=== PATIENT | male | born 1970 | race Caucasian/White ===

== ENCOUNTER 2020-08-01 08:37 | Outpatient (REF) | payer OTHER, SELFPAY ==
[2020-08-01 08:51] LABS: MANUAL DIFF FLAG NO
[2020-08-01 08:52] LABS: Basophils Percent Auto 0.4 % (0-2); Eosinophils Absolute Auto 0.1 X10*3/uL (0.0-0.4); Eosinophils Percent Auto 1.7 % (0-4); Hematocrit 44.8 % (42-52); Hemoglobin 15.4 g/dl (14.0-18.0); Imm Gran Abs Auto 0.02 X10*3/uL (0.00-0.03); Imm Gran Pct Auto 0.3 % (0.0-0.4); Lymphocytes Absolute Auto 2.8 X10*3/uL (1.2-4.9); Lymphocytes Percent Auto 37.6 % (20-40); Mean Corpuscular HGB Conc 34.4 g/dl (31.0-36.0); Mean Corpuscular Hemoglobin 30.3 pg (27.0-33.0); Mean Platelet Volume 10.6 fL (9.4-12.4); Monocytes Absolute Auto 0.5 X10*3/uL (0.1-1.2); Platelet Count 162 X10*3/uL (160-400); Red Blood Count 5.09 X10*6/uL (4.60-5.80); Red Cell Distribution Width 11.6 % (11.0-16.0); White Blood Count 7.5 X10*3/uL (4.8-10.8)
[2020-08-01 09:25] LABS: Alanine Aminotransferase 68 U/L (0-40); Albumin Level 4.6 g/dL (3.5-5.0); Alkaline Phosphatase 58 U/L (39-117); Aspartate Amino Transferase 41 U/L (5-37); Bilirubin Direct 0.2 mg/dL (0.0-0.5); Bilirubin Total 0.5 mg/dL (0.0-1.0); Total Protein 7.2 g/dL (6.5-8.0)
[2020-08-01 09:45] LABS: Ferritin 233 ng/mL (20-250)
== END 2020-08-01 08:38 | disposition home or self-care (01) ==
LOC: HO.BBR 08:37
PROVIDERS: Visit Provider Internal Medicine Endocrinology, Diabetes & Metabolism
DX: E83.110 Hereditary hemochromatosis (principal)
CPT/HCPCS: 36415; 80076; 82728; 85025; 99195

== ENCOUNTER 2024-03-28 08:13 | Outpatient (REF) | payer OTHER, SELFPAY | END 2024-03-28 08:14 | disposition home or self-care (01) | LOC: HO.BBR 08:13 | PROVIDERS: PCP Internal Medicine Endocrinology, Diabetes & Metabolism; Visit Provider Internal Medicine Endocrinology, Diabetes & Metabolism | DX: Z13.89 Encounter for screening for other disorder (principal) ==

== ENCOUNTER 2024-05-01 09:44 | Outpatient (REF) | payer OTHER, SELFPAY | END 2024-05-01 09:45 | disposition home or self-care (01) | LOC: HO.BBR 09:44 | PROVIDERS: PCP Internal Medicine Endocrinology, Diabetes & Metabolism; Visit Provider Internal Medicine Endocrinology, Diabetes & Metabolism | DX: Z13.89 Encounter for screening for other disorder (principal) ==

== ENCOUNTER 2024-05-22 08:06 | Outpatient (REF) | payer OTHER, SELFPAY | END 2024-05-22 08:07 | disposition home or self-care (01) | LOC: HO.BBR 08:06 | PROVIDERS: PCP Internal Medicine Endocrinology, Diabetes & Metabolism; Visit Provider Internal Medicine Endocrinology, Diabetes & Metabolism | DX: Z13.89 Encounter for screening for other disorder (principal) ==

== ENCOUNTER 2024-06-20 12:02 | Outpatient (REF) | payer OTHER, SELFPAY | END 2024-06-20 12:03 | disposition home or self-care (01) | LOC: HO.BBR 12:02 | PROVIDERS: PCP Internal Medicine Endocrinology, Diabetes & Metabolism; Visit Provider Internal Medicine Endocrinology, Diabetes & Metabolism | DX: Z13.89 Encounter for screening for other disorder (principal) ==

== ENCOUNTER 2024-08-08 09:04 | Outpatient (REF) | payer OTHER, SELFPAY ==
[2024-08-08 09:31] LABS: MANUAL DIFF FLAG NO
[2024-08-08 09:54] LABS: Basophils Absolute Auto 0.1 X10*3/uL (0.0-0.2); Basophils Percent Auto 0.8 % (0-2); Eosinophils Absolute Auto 0.2 X10*3/uL (0.0-0.4); Eosinophils Percent Auto 2.3 % (0-4); Hematocrit 43.8 % (42.0-52.0); Hemoglobin 14.8 g/dl (14.0-18.0); Imm Gran Abs Auto 0.02 X10*3/uL (0.00-0.03); Imm Gran Pct Auto 0.3 % (0.0-0.4); Lymphocytes Absolute Auto 2.9 X10*3/uL (1.2-4.9); Lymphocytes Percent Auto 39.6 % (20-40); Mean Corpuscular HGB Conc 33.8 g/dl (31.0-36.0); Mean Corpuscular Hemoglobin 29.1 pg (27.0-33.0); Mean Corpuscular Volume 86.1 fL (80.0-98.0); Monocytes Absolute Auto 0.4 X10*3/uL (0.1-1.2); Neutrophils Absolute Auto 3.8 x10*3/uL (2.0-8.3); Platelet Count 163 X10*3/uL (160-400); Red Blood Count 5.09 X10*6/uL (4.60-5.80); Red Cell Distribution Width 11.9 % (11.0-16.0); White Blood Count 7.4 X10*3/uL (4.8-10.8)
[2024-08-08 10:24] LABS: Alanine Aminotransferase 30 U/L (0-40); Albumin Level 4.4 g/dL (3.5-5.0); Alkaline Phosphatase 56 U/L (39-117); Aspartate Amino Transferase 19 U/L (5-37); Bilirubin Direct 0.2 mg/dL (0.0-0.5); Bilirubin Total 0.5 mg/dL (0.0-1.0); Total Protein 7.1 g/dL (6.5-8.0)
[2024-08-08 10:41] LABS: Ferritin 319 ng/mL (20-250)
== END 2024-08-08 09:05 | disposition home or self-care (01) ==
LOC: HO.BBR 09:04
PROVIDERS: PCP Internal Medicine Endocrinology, Diabetes & Metabolism; Visit Provider Internal Medicine Endocrinology, Diabetes & Metabolism
DX: E83.110 Hereditary hemochromatosis (principal)
CPT/HCPCS: 36415; 80076; 82728; 85025

== ENCOUNTER 2024-09-03 08:07 | Outpatient (REF) | payer OTHER, SELFPAY ==
[2024-09-03 08:49] LABS: MANUAL DIFF FLAG NO
[2024-09-03 08:54] LABS: Basophils Absolute Auto 0.1 X10*3/uL (0.0-0.2); Basophils Percent Auto 0.8 % (0-2); Eosinophils Absolute Auto 0.1 X10*3/uL (0.0-0.4); Eosinophils Percent Auto 2.2 % (0-4); Hematocrit 43.2 % (42.0-52.0); Imm Gran Abs Auto 0.01 X10*3/uL (0.00-0.03); Imm Gran Pct Auto 0.2 % (0.0-0.4); Lymphocytes Absolute Auto 2.8 X10*3/uL (1.2-4.9); Mean Corpuscular HGB Conc 34.7 g/dl (31.0-36.0); Mean Corpuscular Hemoglobin 29.7 pg (27.0-33.0); Mean Corpuscular Volume 85.5 fL (80.0-98.0); Mean Platelet Volume 11.4 fL (9.4-12.4); Monocytes Absolute Auto 0.5 X10*3/uL (0.1-1.2); Monocytes Percent Auto 8.5 % (2-11); Neutrophils Absolute Auto 2.7 x10*3/uL (2.0-8.3); Neutrophils Percent Auto 43.3 % (45-73); Platelet Count 146 X10*3/uL (160-400); Red Blood Count 5.05 X10*6/uL (4.60-5.80); White Blood Count 6.3 X10*3/uL (4.8-10.8)
[2024-09-03 09:26] LABS: Alanine Aminotransferase 35 U/L (0-40); Albumin Level 4.5 g/dL (3.5-5.0); Alkaline Phosphatase 45 U/L (39-117); Aspartate Amino Transferase 21 U/L (5-37); Bilirubin Direct 0.2 mg/dL (0.0-0.5); Bilirubin Total 0.6 mg/dL (0.0-1.0); Total Protein 7.2 g/dL (6.5-8.0)
[2024-09-03 09:40] LABS: Ferritin 229 ng/mL (20-250)
== END 2024-09-03 08:08 | disposition home or self-care (01) ==
LOC: HO.BBR 08:07
PROVIDERS: PCP Internal Medicine Endocrinology, Diabetes & Metabolism; Visit Provider Internal Medicine Endocrinology, Diabetes & Metabolism
DX: E83.110 Hereditary hemochromatosis (principal)
CPT/HCPCS: 36415; 80076; 82728; 85025

== ENCOUNTER 2024-09-24 08:02 | Outpatient (REF) | payer OTHER, SELFPAY ==
[2024-09-24 08:41] LABS: MANUAL DIFF FLAG NO
[2024-09-24 08:52] LABS: Basophils Absolute Auto 0.1 X10*3/uL (0.0-0.2); Eosinophils Absolute Auto 0.1 X10*3/uL (0.0-0.4); Hematocrit 42.1 % (42.0-52.0); Hemoglobin 14.5 g/dl (14.0-18.0); Imm Gran Abs Auto 0.01 X10*3/uL (0.00-0.03); Imm Gran Pct Auto 0.2 % (0.0-0.4); Lymphocytes Absolute Auto 2.5 X10*3/uL (1.2-4.9); Lymphocytes Percent Auto 41.6 % (20-40); Mean Corpuscular HGB Conc 34.4 g/dl (31.0-36.0); Mean Corpuscular Hemoglobin 29.7 pg (27.0-33.0); Mean Corpuscular Volume 86.1 fL (80.0-98.0); Monocytes Absolute Auto 0.5 X10*3/uL (0.1-1.2); Monocytes Percent Auto 7.5 % (2-11); Neutrophils Absolute Auto 2.9 x10*3/uL (2.0-8.3); Neutrophils Percent Auto 47.7 % (45-73); Platelet Count 162 X10*3/uL (160-400); Red Blood Count 4.89 X10*6/uL (4.60-5.80)
[2024-09-24 09:28] LABS: Alanine Aminotransferase 29 U/L (0-40); Albumin Level 4.5 g/dL (3.5-5.0); Alkaline Phosphatase 51 U/L (39-117); Aspartate Amino Transferase 31 U/L (5-37); Bilirubin Direct 0.2 mg/dL (0.0-0.5); Bilirubin Total 0.5 mg/dL (0.0-1.0); Total Protein 6.9 g/dL (6.5-8.0)
[2024-09-24 09:46] LABS: Ferritin 198 ng/mL (20-250)
== END 2024-09-24 08:03 | disposition home or self-care (01) ==
LOC: HO.BBR 08:02
PROVIDERS: PCP Internal Medicine Endocrinology, Diabetes & Metabolism; Visit Provider Internal Medicine Endocrinology, Diabetes & Metabolism
DX: E83.110 Hereditary hemochromatosis (principal)
CPT/HCPCS: 36415; 80076; 82728; 85025

== ENCOUNTER 2024-10-29 08:04 | Outpatient (REF) | payer OTHER, SELFPAY ==
[2024-10-29 08:40] LABS: MANUAL DIFF FLAG NO
[2024-10-29 08:59] LABS: Basophils Absolute Auto 0.1 X10*3/uL (0.0-0.2); Basophils Percent Auto 1.1 % (0-2); Eosinophils Absolute Auto 0.2 X10*3/uL (0.0-0.4); Eosinophils Percent Auto 2.7 % (0-4); Hematocrit 43.5 % (42.0-52.0); Hemoglobin 15.1 g/dl (14.0-18.0); Imm Gran Abs Auto 0.01 X10*3/uL (0.00-0.03); Imm Gran Pct Auto 0.1 % (0.0-0.4); Lymphocytes Absolute Auto 3.1 X10*3/uL (1.2-4.9); Lymphocytes Percent Auto 41.7 % (20-40); Mean Corpuscular HGB Conc 34.7 g/dl (31.0-36.0); Mean Corpuscular Hemoglobin 29.8 pg (27.0-33.0); Mean Corpuscular Volume 85.8 fL (80.0-98.0); Mean Platelet Volume 11.4 fL (9.4-12.4); Monocytes Absolute Auto 0.5 X10*3/uL (0.1-1.2); Monocytes Percent Auto 6.8 % (2-11); Neutrophils Absolute Auto 3.5 x10*3/uL (2.0-8.3); Neutrophils Percent Auto 47.6 % (45-73); Platelet Count 178 X10*3/uL (160-400); Red Blood Count 5.07 X10*6/uL (4.60-5.80); Red Cell Distribution Width 12.2 % (11.0-16.0); White Blood Count 7.3 X10*3/uL (4.8-10.8)
[2024-10-29 10:01] LABS: Alanine Aminotransferase 24 U/L (0-40); Albumin Level 4.5 g/dL (3.5-5.0); Alkaline Phosphatase 53 U/L (39-117); Aspartate Amino Transferase 18 U/L (5-37); Bilirubin Direct 0.1 mg/dL (0.0-0.5); Bilirubin Total 0.4 mg/dL (0.0-1.0); Total Protein 7.2 g/dL (6.5-8.0)
[2024-10-29 10:16] LABS: Ferritin 167 ng/mL (20-250)
== END 2024-10-29 08:05 | disposition home or self-care (01) ==
LOC: HO.BBR 08:04
PROVIDERS: PCP Internal Medicine Endocrinology, Diabetes & Metabolism; Visit Provider Internal Medicine Endocrinology, Diabetes & Metabolism
DX: E83.119 Hemochromatosis, unspecified (principal)
CPT/HCPCS: 36415; 80076; 82728; 85025

== ENCOUNTER 2024-12-14 10:01 | Outpatient (REF) | payer OTHER, SELFPAY ==
[2024-12-14 10:27] LABS: MANUAL DIFF FLAG NO
--- OUTSIDE RECORDS SUMMARY | 2024-12-14 10:46 | XMS_ITS | Continuity of Care Document ---
Author Organization [facility] [address] [place] [address] Phone [phone] Care Team Providers Care Field Representatives Director Name Role Phone Nesha Barraza M.D. Care Team Informati on Retail Consultant [phone] Problems Active Problems Provider Date Psoriasis Nesha nugent M.D. Onset: 05/12/2022 Type 2 diabetes mellitus Nesha Thomas M.D. Onset: 05/12/2022 Hypertriglyceridemia Nesha cole M.D. Onset: 05/12/2022 Essential hypertension Nesha carey M.D. Onset: 05/12/2022 History of malignant neoplasm of testis Nesha Barraza M.D. Onset: 05/12/2022 Obstructive sleep apnea syndrome Juni Barraza M.D. Onset: 05/12/2022 Osteoarthritis of knee Nesha carey M.D. Onset: 05/12/2022 Kidney stone Nesha nugent M.D. Onset: 05/12/2022 Hereditary hemochromatosis Nesha Mckenzie M.D. Onset: 05/12/2022 Degeneration of cervical int ervertebral disc Nesha Barraza M.D. Onset: 05/12/2022 Polyp of colon Nesha nugent M.D. 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 04/30/2024 Glipizide ER5mg Tablets ER 24HR take 1 tablet by mouth daily 90tabs Nesha Barraza M.D. 02/29/2024 [id number] Tablets Take 1 Tablet By Mouth Daily as Directed 90taneena Barraza M.D. 06/17/2023 Humira Csb50au/0.4ML PNKT Inject every 2 weeks Nesha Barraza M.D. 12/15/2022 [id number] Tablets Take 1 Tablet By Mouth Daily as Directed 90taneena Barraza M.D. Metformin HCL QL155tb Tablets ER 24HR Take 4 Tablets By Mouth AT Bedtime as Directed 360taneena Barraza M.D. Tamsulosin HCL0.4mg Capsules 1 cap by mouth every night Unknown Vital Signs Date Vital Result Comment 07/02/2024 9:05am BP Systolic 136 mmHg BP Diastolic 86 mmHg Heart Rate 96 /min Height 71 inches 5'11 Weight 195.00 lb BMI (Body Mass Index) 27.2 kg/m2 Results Test Acquired Date Facility Test Result H/L Range Note Lipid Panel 07/02/2024 [facility] Cholesterol, Total 142 mg/dL 100-199 Triglycerides 98 mg/dL 0-149 HDL Cholesterol 41 mg/dL >39 VLDL Cholestero l Arian 18 mg/dL 5-40 LDL Chol Calc ([facility]) 83 mg/dL 0-99 LDL Calc Comment: TNP CBC With Differential/Plat elet 07/02/2024 [facility] WBC 6.6 x10E3/uL 3.4-10.8 RBC 5.01 x10E6/uL 4.14-5.8 0 Hemoglobin 14.9 g/dL 13.0-17. 7 Hematocrit 44.1 % 37.5-51. 0 MCV 88 fL 79-97 MCH 29.7 pg 26.6-33. 0 MCHC 33.8 g/dL 31.5-35. 7 RDW 11.9 % 11.6-15. 4 Platelets 190 x10E3/uL 150-450 Neutrophils 47 % Not Estab. Lymphs 42 % Not Estab. Monocytes 8 % Not Estab. Eos 2 % Not Estab. Basos 1 % Not Estab. Immature Cells TNP Neutrophils (Absolute) 3.1 x10E3/uL 1.4-7.0 Lymphs (Absolute) 2.7 x10E3/uL 0.7-3.1 Monocytes(Absol u te) 0.5 x10E3/uL 0.1-0.9 Eos (Absolute) 0.2 x10E3/uL 0.0-0.4 Baso (Absolute) 0.1 x10E3/uL 0.0-0.2 Immature Granulocytes 0 % Not Estab. Immature Grans (Abs) 0.0 x10E3/uL 0.0-0.1 NRBC TNP Hematology Comments: TNP Laboratory test finding 07/02/2024 [facility] Ferritin 396 ng/mL 30-400 Laboratory test finding 07/02/2024 Inhouse Glucose Fingerstick 129 Hemoglobin A1c 5.6% Comp. Metabolic Panel (14) 07/02/2024 [facility] Glucose 135 mg/dL High 70-99 BUN 19 mg/dL 6-24 Creatinine 1.05 mg/dL 0.76-1.2 7 eGFR 84 mL/min/1. 73 >59 BUN/Creatinine Ratio 18 9-20 Sodium 142 mmol/L 134-144 Potassium 4.7 mmol/L 3.5-5.2 Chloride 107 mmol/L High 96-106 Carbon Dioxide, Total 23 mmol/L 20-29 Calcium 9.4 mg/dL 8.7-10.2 Protein, Total 7.5 g/dL 6.0-8.5 Albumin 4.9 g/dL 3.8-4.9 Globulin, Total 2.6 g/dL 1.5-4.5 Bilirubin, Total 0.3 mg/dL 0.0-1 .2 Alkaline Phosphatase 37 IU/L Low 44-121 Ast (Sgot) 16 IU/L 0-40 Alt (SGPT) 22 IU/L 0-44 Albumin/Creatinin e Ratio, Random Urine 03/01/2024 [facility] Creatinine, Urine 115.0 mg/dL Not Estab. 1, 2 Albumin, Urine 92.5 ug/mL Not Estab. 3 Alb/Creat Ratio 80 mg/gcreat High 0-29 4 Comp. Metabolic Panel (14) 02/29/2024 [facility] Glucose 91 mg/dL 70-99 BUN 16 mg/dL 6-24 Creatinine 1.09 mg/dL High 0.57-1.0 0 eGFR 60 mL/min/1. 73 >59 BUN/Creatinine Ratio 15 9-23 Sodium 145 mmol/L High 134-144 Potassium 4.0 mmol/L 3.5-5.2 Chloride 104 mmol/L 96-106 Carbon Dioxide, Total 23 mmol/L 20-29 Calcium 10.2 mg/dL 8.7-10.2 Protein, Total 8.0 g/dL 6.0-8.5 Albumin 5.1 g/dL High 3.8-4.9 Globulin, Total 2.9 g/dL 1.5-4.5 A/G Ratio 1.8 1.2-2.2 Bilirubin, Total 0.4 mg/dL 0.0-1 .2 Alkaline Phosphatase 51 IU/L 44-121 Ast (Sgot) 26 IU/L 0-40 Alt (SGPT) 50 IU/L High 0-32 Lipid Panel 02/29/2024 [facility] Cholesterol, Total 152 mg/dL 100-199 Triglycerides 342 mg/dL High 0-149 HDL Cholesterol 32 mg/dL Low >39 VLDL Cholestero l Arian 54 mg/dL High 5-40 LDL Chol Calc ([facility]) 66 mg/dL 0-99 Comment: TNP CBC With Differential/Plat elet 02/29/2024 [facility] WBC 10.0 x10E3/uL 3.4-10.8 RBC 5.47 x10E6/uL High 3.77-5.2 8 Hemoglobin 16.2 g/dL High 11.1-15. 9 Hematocrit 47.9 % High 34.0-46. 6 MCV 88 fL 79-97 MCH 29.6 pg 26.6-33. 0 MCHC 33.8 g/dL 31.5-35. 7 RDW 12.5 % 11.7-15. 4 Platelets 179 x10E3/uL 150-450 Neutrophils 43 % Not Estab. Lymphs 47 % Not Estab. Monocytes 7 % Not Estab. Eos 2 % Not Estab. Basos 1 % Not Estab. Immature Cells TNP Neutrophils (Absolute) 4.3 x10E3/uL 1.4-7.0 Lymphs (Absolute) 4.7 x10E3/uL High 0.7-3.1 Monocytes(Absol u te) 0.7 x10E3/uL 0.1-0.9 Eos (Absolute) 0.2 x10E3/uL 0.0-0.4 Baso (Absolute) 0.1 x10E3/uL 0.0-0.2 Immature Granulocytes 0 % Not Estab. Immature Grans (Abs) 0.0 x10E3/uL 0.0-0.1 NRBC TNP Hematology Comments: TNP Laboratory test finding 02/29/2024 [facility] Prostate-Specifi c Ag 1.7 ng/mL Not Estab. 5 Ferritin 1039 ng/mL High 15-150 Albumin/Creatinin e Ratio, Random Urine 02/29/2024 [facility] Creatinine, Urine TNP mg/dL 6 Albumin, Urine TNP 7 Alb/Creat Ratio TNP Laboratory test finding 02/29/2024 [facility] Specimen Status Report TNP 8 Laboratory test finding 02/29/2024 Inhouse Glucose Fingerstick 120 Hemoglobin A1c 6.9% Comprehensive Metabolic Panl 06/15/2023 [facility] Glucose 169 mg/dL High (70-99) BUN 20 mg/dL (6-20) Creatinine 1.0 mg/dL (0.7-1.2 ) Sodium 140 mmol/L (133-145 ) Potassium 4.7 mmol/L (3.6-5.2 ) Chloride 103 mmol/L (98-107) Bicarbonate 25 mmol/L (22-29) Anion Gap 12 (4-17) Albumin 4.9 GM/DL High (3.4-4.8 ) Calcium 9.9 mg/dL (8.6-10. 5) Bilirubin,Total 0.6 mg/dL (0-1.2 ) Total Protein 7.2 GM/DL (6.2-8.2 ) Ag Ratio 2.1 Ast 23 U/L (0-40) Alk Phos 56 U/L (40-129) Alt 41 U/L (0-41) Estimated GFR Creatinine 86 ML/MIN/1. 73M2 9 Laboratory test finding 06/15/2023 [facility] Ferritin 854 NG/ML High (16-294) Lipid Panel 06/15/2023 [facility] Cholesterol, Total 137 mg/dL (<200) Triglyceride 159 mg/dL High (<150) HDL Chol 35 mg/dL Low (>39) LDL Cholesterol , Calculated 70 mg/dL (0-130) Non HDL Cholesterol (Calc) 102 mg/dL (<160) Urinary Microalbumin 06/15/2023 [facility] Micro-Albumin 107.0 mg/L High (<20) 10 Malb/Creat Ratio 73.0 MG/GM High (0-20) Urine Creat For Micro Albumin 146.1 mg/dL Complete Abc With Diff 06/15/2023 [facility] WBC 6.9 K/MM3 (4.0-11. 0) RBC 5.54 M/MM3 (4.70-6. 10) HGB 16.2 GM/DL (13.7-17 .1) HCT 50.1 % High (40.5-50 .0) MCV 90.4 FL (80.0-94 .0) MCH 29.2 pg (27.0-34 .0) MCHC 32.3 g/dL Low (33.0-37 .0) PLT 148 K/MM3 Low (150-460 ) RDW-SD 40.8 FL (<47.0) MPV 11.9 FL (9.4-12. 4) Automated NRBC 0.0 #/100WBC' S Abs. NRBC 0.0 K/MM3 Neut # 2.9 K/MM3 (1.3-7.0 ) Lymph # 3.1 K/MM3 (0.8-3.1 ) Acadia# 0.5 K/MM3 (0.4-1.3 ) Eo # 0.3 K/MM3 (0.0-0.4 ) Baso # 0.1 K/MM3 (0.0-0.1 ) Abs. Imm Gran 0.0 K/MM3 Neut 42.3 % Low (44-76) Lymph 45.4 % High (15-43) Monocyte 7.4 % (4.5-10. 5) Eo 3.8 % (0-6) Baso 1.0 % (0-2) Imm Gran 0.1 % Laboratory test finding 06/10/2023 [facility] Ferritin <pending> Laboratory test finding 06/10/2023 Inhouse Glucose Fingerstick 103 Hemoglobin A1c 6.9% Comprehensive Metabolic Panl 12/15/2022 [facility] Glucose 111 mg/dL High (70-99) BUN 16 mg/dL (6-20) Creatinine 1.1 mg/dL (0.7-1.2 ) Sodium 144 mmol/L (133-145 ) Potassium 4.1 mmol/L (3.6-5.2 ) Chloride 103 mmol/L (98-107) Bicarbonate 29 mmol/L (22-29) Anion Gap 12 (4-17) Albumin 5.2 GM/DL High (3.4-4.8 ) Calcium 10.6 mg/dL High (8.6-10. 5) Bilirubin,Total 0.4 mg/dL (0-1.2 ) Total Protein 7.8 GM/DL (6.2-8.2 ) Ag Ratio 2.0 Ast 23 U/L (0-40) Alk Phos 61 U/L (40-129) Alt 45 U/L High (0-41) Estimated GFR Creatinine 81 ML/MIN/1. 73M2 11 Complete Abc With Diff 12/15/2022 [facility] WBC 9.3 K/MM3 (4.0-11. 0) RBC 5.59 M/MM3 (4.70-6. 10) HGB 16.4 GM/DL (13.7-17 .1) HCT 49.5 % (40.5-50 .0) MCV 88.6 FL (80.0-94 .0) MCH 29.3 pg (27.0-34 .0) MCHC 33.1 g/dL (33.0-37 .0) PLT 156 K/MM3 (150-460 ) RDW-SD 39.8 FL (<47.0) MPV 11.7 FL (9.4-12. 4) Automated NRBC 0.0 #/100WBC' S Abs. NRBC 0.0 K/MM3 Neut # 3.6 K/MM3 (1.3-7.0 ) Lymph # 4.7 K/MM3 High (0.8-3.1 ) Acadia# 0.6 K/MM3 (0.4-1.3 ) Eo # 0.4 K/MM3 (0.0-0.4 ) Baso # 0.1 K/MM3 (0.0-0.1 ) Abs. Imm Gran 0.0 K/MM3 Neut 38.3 % Low (44-76) Lymph 49.9 % High (15-43) Monocyte 6.5 % (4.5-10. 5) Eo 4.0 % (0-6) Baso 1.0 % (0-2) Imm Gran 0.3 % Laboratory test finding 12/15/2022 [facility] PSA Screen 1.5 NG/ML (0-4) 12 Ferritin 772 NG/ML High (16-294) Urinary Microalbumin 12/15/2022 [facility] Micro-Albumin 63.5 mg/L High (<20) 13 Malb/Creat Ratio 49.4 MG/GM High (0-20) Urine Creat For Micro Albumin 128.6 mg/dL Laboratory test finding 12/15/2022 Inhouse Glucose Fingerstick 157 Hemoglobin A1c 6.7% Laboratory test finding 05/12/2022 Inhouse Glucose Fingerstick 235 Hemoglobin A1c 7.8 1 SRC: URINE 2 Source of Specimen: URINE 3 Source of Specimen: URINE 4 Source of Specimen: URINE Normal: 0 - 29 Moderately increased: 30 - 300 Severely increased: >300 5 Yolette ECLIA methodol ogy. According to the [place] [employer], Serum PSA should decrease and remain at undetectable levels after radical prostatectomy. The AUA defines biochemical recurrence as an initial PSA value 0.2 ng/mL or greater followed by a subsequent confirmatory PSA value 0.2 ng/mL or greater. Values obtained with different assay methods or kits cannot be used interchangeably. Results cannot be interpreted as absolute evidence of the presence or absence of malignant disease. 6 Please refer to the following specimen for additional lab results. 7 Test not performed 8 Please refer to the following specimen for additional lab results. [phone] D 9 Creatinine based est imated glomerular filtration (eGFR) in adults is calculated using the National [employer] recommended 2020 CKD-EPI equation. Estimates GFR from serum creatinine, age and sex. 10 The urine microalbum in test is designed to monitor renal function. When screening for Bence Broussard proteinuria, urine electrophoresis is recommended. 11 Creatinine based est imated glomerular filtration (eGFR) in adults is calculated using the National [employer] recommended 2020 CKD-EPI equation. Estimates GFR from serum creatinine, age and sex. 12 TEST PERFORMED USING THE YOLETTE ELECTROCHEMILLUMINESCENCE TOTAL PSA ASSAY. PSA VALUES OBTAINED WITH OTHER ASSAY METHODS OR KITS CANNOT BE USED INTERCHANGEABLY. 13 The urine microalbum in test is designed to monitor renal function. When screening for Bence Broussard proteinuria, urine electrophoresis is recommended. Procedures Date Code Description Status 07/02/2024 41592 Collection Of Venous Blood B y Venipuncture Completed 02/29/2024 46773 Collection Of Venous Blood B y Venipuncture Completed 12/15/2022 16740 Collection Of Venous Blood B y Venipuncture Completed Medical Devices Description No Information Available Encounters Type Date Location Provider Dx Diagnosis Office Visit 07/02/2024 8:45a Main Office Nesha Barraza M.D. E78.1 Pure hyperglyceridemia E83.110 Hereditary hemochrom atosis I10 Essential (primary) hypertension G47.33 Obstructive sleep ap terra (adult) (pediatric) N20.0 Calculus of kidney E11.21 Type 2 diabetes huan itus with diabetic nephropathy Assessments Date Code Description Provider 07/02/2024 E78.1 Pure hyperglyceridemia Jarrett Barraza M.D. 07/02/2024 E83.110 Hereditary hemochromatosis K carlita Barraza M.D. 07/02/2024 I10 Essential (primary) hyperten alfonso Nesha Barraza M.D. 07/02/2024 G47.33 Obstructive slee p apnea (adult) (pediatric) Nesha Barraza M.D. 07/02/2024 N20.0 Nephrolithiasis NOS Nesha Barraza M.D. 07/02/2024 E11.21 Type 2 diabetes mellitus with diabetic nephropathy Nesha Barraza M.D. Plan of Treatment Future Appointment(s):* 03/22/2025 10:15 am - Nesha Barraza M.D. 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 Closed [address] [facility] [address] [place] [address] [phone] Ismael Jordan Closed [address] [place] [address] [phone] [facility] Urology Closed [address] [facility] [address] [place] [address] [phone] Julio Mota MD Psoriasis Closed [facility] [address] [place] [address], [place] [address] [phone] [facility] faxed referral Closed [address] [place] [address], [facility] [address] [place] [address] [phone] Ryan Oconnell Closed [address] [place] [address] [phone] [facility] Closed [address] [place] [address], [facility] [address] [place] [address] [phone]
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
[2024-12-14 10:48] LABS: Basophils Absolute Auto 0.1 X10*3/uL (0.0-0.2); Basophils Percent Auto 0.8 % (0-2); Eosinophils Absolute Auto 0.1 X10*3/uL (0.0-0.4); Eosinophils Percent Auto 1.8 % (0-4); Hematocrit 47.2 % (42.0-52.0); Hemoglobin 16.3 g/dl (14.0-18.0); Imm Gran Abs Auto 0.01 X10*3/uL (0.00-0.03); Imm Gran Pct Auto 0.1 % (0.0-0.4); Lymphocytes Absolute Auto 2.9 X10*3/uL (1.2-4.9); Lymphocytes Percent Auto 40.2 % (20-40); Mean Corpuscular HGB Conc 34.5 g/dl (31.0-36.0); Mean Corpuscular Hemoglobin 29.6 pg (27.0-33.0); Mean Corpuscular Volume 85.8 fL (80.0-98.0); Mean Platelet Volume 11.2 fL (9.4-12.4); Monocytes Absolute Auto 0.6 X10*3/uL (0.1-1.2); Monocytes Percent Auto 8.1 % (2-11); Neutrophils Absolute Auto 3.5 x10*3/uL (2.0-8.3); Platelet Count 153 X10*3/uL (160-400); Red Cell Distribution Width 11.9 % (11.0-16.0); White Blood Count 7.2 X10*3/uL (4.8-10.8)
[2024-12-14 11:16] LABS: Alanine Aminotransferase 41 U/L (0-40); Albumin Level 4.7 g/dL (3.5-5.0); Alkaline Phosphatase 68 U/L (39-117); Aspartate Amino Transferase 20 U/L (5-37); Bilirubin Direct 0.2 mg/dL (0.0-0.5); Bilirubin Total 0.5 mg/dL (0.0-1.0)
[2024-12-14 11:31] LABS: Ferritin 167 ng/mL (20-250)
== END 2024-12-14 10:02 | disposition home or self-care (01) ==
LOC: HO.BBR 10:01
PROVIDERS: PCP Internal Medicine Endocrinology, Diabetes & Metabolism; Visit Provider Internal Medicine Endocrinology, Diabetes & Metabolism
DX: E83.110 Hereditary hemochromatosis (principal)
CPT/HCPCS: 36415; 80076; 82728; 85025

== ENCOUNTER 2025-01-22 09:04 | Outpatient (REF) | payer OTHER, SELFPAY ==
[2025-01-22 09:33] LABS: MANUAL DIFF FLAG NO
[2025-01-22 09:53] LABS: Basophils Absolute Auto 0.1 X10*3/uL (0.0-0.2); Basophils Percent Auto 0.7 % (0-2); Eosinophils Absolute Auto 0.2 X10*3/uL (0.0-0.4); Eosinophils Percent Auto 2.2 % (0-4); Hematocrit 43.9 % (42.0-52.0); Hemoglobin 15.1 g/dl (14.0-18.0); Imm Gran Abs Auto 0.02 X10*3/uL (0.00-0.03); Imm Gran Pct Auto 0.3 % (0.0-0.4); Lymphocytes Absolute Auto 2.8 X10*3/uL (1.2-4.9); Mean Corpuscular HGB Conc 34.4 g/dl (31.0-36.0); Mean Corpuscular Hemoglobin 28.9 pg (27.0-33.0); Mean Corpuscular Volume 84.1 fL (80.0-98.0); Mean Platelet Volume 11.1 fL (9.4-12.4); Monocytes Absolute Auto 0.5 X10*3/uL (0.1-1.2); Monocytes Percent Auto 7.8 % (2-11); Neutrophils Absolute Auto 3.4 x10*3/uL (2.0-8.3); Platelet Count 170 X10*3/uL (160-400); Red Blood Count 5.22 X10*6/uL (4.60-5.80); Red Cell Distribution Width 12.3 % (11.0-16.0); White Blood Count 6.9 X10*3/uL (4.8-10.8)
--- OUTSIDE RECORDS SUMMARY | 2025-01-22 09:53 | XMS_ITS | Continuity of Care Document ---
Author Organization [facility] [address] [place] [address] Phone [phone] Care Team Providers Care Hospital Supervisor Name Role Phone Nesha Barraza M.D. 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 02/29/2024 [id number] Tablets Take 1 Tablet By Mouth Daily as Directed 90taneena Barraza M.D. 06/17/2023 Humira Lcv11en/0.4ML PNKT Inject every 2 weeks Nesha Barraza M.D. 12/15/2022 [id number] Tablets Take 1 Tablet By Mouth Daily as Directed 90nitza Barraza M.D. Metformin HCL HA638et Tablets ER 24HR Take 4 Tablets By [...] Arian 18 mg/dL 5-40 LDL Chol Calc ([facility]) 83 mg/dL 0-99 LDL Calc Comment: TNP Comp. Metabolic Panel (14) 07/02/2024 [facility] Glucose [...] IU/L 0-40 Alt (SGPT) 22 IU/L 0-44 Hemoglobin A1c 07/02/2024 Inhouse Hemoglobin A1c 5.6% Glucose Fingerstick 07/02/2024 Inhouse Glucose Fingerstick 129 Ferritin 07/02/2024 [facility] Ferritin 396 ng/mL 30-400 CBC With Differential/Plat elet 07/02/2024 [facility] WBC [...] x10E3/uL 0.0-0.1 NRBC TNP Hematology Comments: TNP Albumin/Creatinin e Ratio, Random Urine 03/01/2024 [facility] [...] x10E3/uL 0.0-0.1 NRBC TNP Hematology Comments: TNP Prostate-Specific Ag 02/29/2024 [facility] Prostate-Specifi c Ag 1.7 ng/mL Not Estab. 5 Ferritin 02/29/2024 [facility] Ferritin 1039 ng/mL High 15-150 Albumin/Creatinin e Ratio, Random Urine 02/29/2024 [facility] Creatinine, Urine TNP mg/dL 6 Albumin, Urine TNP 7 Alb/Creat Ratio TNP Specimen Status Report 02/29/2024 [facility] Specimen Status Report TNP 8 Glucose Fingerstick 02/29/2024 Inhouse Glucose Fingerstick 120 Hemoglobin A1c 02/29/2024 Inhouse Hemoglobin A1c 6.9% Ferritin 06/15/2023 [facility] Ferritin 854 NG/ML High (16-294) Lipid Panel 06/15/2023 [facility] Cholesterol, Total 137 mg/dL (<200) Triglyceride 159 mg/dL High (<150) HDL Chol 35 mg/dL Low (>39) LDL Cholesterol , Calculated 70 mg/dL (0-130) Non HDL Cholesterol (Calc) 102 mg/dL (<160) Comprehensive Metabolic Panl 06/15/2023 [facility] Glucose 169 mg/dL High [...] Estimated GFR Creatinine 86 ML/MIN/1. 73M2 9 Complete Abc With Diff 06/15/2023 [facility] WBC 6.9 K/MM3 (4.0-11. [...] ) Lymph # 3.1 K/MM3 (0.8-3.1 ) Bol[place]ar# 0.5 K/MM3 (0.4-1.3 ) Eo # 0.3 K/MM3 (0.0-0.4 ) Baso # 0.1 K/MM3 (0.0-0.1 ) Abs. Imm Gran 0.0 K/MM3 Neut 42.3 % Low (44-76) Lymph 45.4 % High (15-43) Monocyte 7.4 % (4.5-10. 5) Eo 3.8 % (0-6) Baso 1.0 % (0-2) Imm Gran 0.1 % Urinary Microalbumin 06/15/2023 [facility] Micro-Albumin 107.0 mg/L High (<20) 10 Malb/Creat Ratio 73.0 MG/GM High (0-20) Urine Creat For Micro Albumin 146.1 mg/dL Ferritin 06/10/2023 [facility] Ferritin <pending> Glucose Fingerstick 06/10/2023 Inhouse Glucose Fingerstick 103 Hemoglobin A1c 06/10/2023 Inhouse Hemoglobin A1c 6.9% Comprehensive Metabolic Panl 12/15/2022 [facility] Glucose 111 mg/dL High [...] Estimated GFR Creatinine 81 ML/MIN/1. 73M2 11 Hemoglobin A1c 12/15/2022 Inhouse Hemoglobin A1c 6.7% Glucose Fingerstick 12/15/2022 Inhouse Glucose Fingerstick 157 Urinary Microalbumin 12/15/2022 [facility] Micro-Albumin 63.5 mg/L High (<20) 12 Malb/Creat Ratio 49.4 MG/GM High (0-20) Urine Creat For Micro Albumin 128.6 mg/dL Ferritin 12/15/2022 [facility] Ferritin 772 NG/ML High (16-294) PSA Screen 12/15/2022 [facility] PSA Screen 1.5 NG/ML (0-4) 13 Complete Abc With Diff 12/15/2022 [facility] WBC 9.3 K/MM3 (4.0-11. [...] Lymph # 4.7 K/MM3 High (0.8-3.1 ) [place]# 0.6 K/MM3 (0.4-1.3 ) Eo # 0.4 K/MM3 (0.0-0.4 ) Baso # 0.1 K/MM3 (0.0-0.1 ) Abs. Imm Gran 0.0 K/MM3 Neut 38.3 % Low (44-76) Lymph 49.9 % High (15-43) Monocyte 6.5 % (4.5-10. 5) Eo 4.0 % (0-6) Baso 1.0 % (0-2) Imm Gran 0.3 % Glucose Fingerstick 05/12/2022 Inhouse Glucose Fingerstick 235 Hemoglobin A1c 05/12/2022 Inhouse Hemoglobin A1c 7.8 1 SRC: URINE 2 Source of Specimen: URINE 3 Source of Specimen: URINE 4 Source of Specimen: URINE Normal: 0 - 29 Moderately increased: 30 - 300 Severely increased: >300 5 Yolette ECLIA methodol ogy. According to the [employer], Serum PSA should decrease and [...] the following specimen for additional lab results. [phone] D 9 Creatinine based est imated glomerular [...] from serum creatinine, age and sex. 12 The urine microalbum in test is designed to monitor renal function. When screening for Bence Broussard proteinuria, urine electrophoresis is recommended. 13 TEST PERFORMED USING THE YOLETTE ELECTROCHEMILLUMINESCENCE TOTAL PSA ASSAY. PSA VALUES OBTAINED WITH OTHER ASSAY METHODS OR KITS CANNOT BE USED INTERCHANGEABLY. Procedures Date Code Description Status 07/02/2024 30686 Collection Of Venous Blood B y Venipuncture Completed 02/29/2024 15963 Collection Of Venous Blood B y Venipuncture Completed 12/15/2022 23643 Collection Of Venous Blood B y Venipuncture [...] Description No Information Available Referrals Refer to Reason for Referral Status Appt [facility] Presser Automatic colonoscopy Closed [address] [facility] [address] [place] [address] [phone] Ismael Jordan Closed [address] [place] [address] [phone] [facility] Closed [address] [facility] [address] [place] [address] [phone] Julio Mota MD Psoriasis Closed [facility] [address] [place] [address], [place] [address] [phone] [facility] faxed referral Closed [address] [place] [address], [address] [address] [phone] Ryan Oconnell Closed [address] [place] [address] [phone] [facility] Closed [address] [place] [address], [address] [address] [phone]
[2025-01-22 10:40] LABS: Albumin Level 4.4 g/dL (3.5-5.0); Alkaline Phosphatase 59 U/L (39-117); Aspartate Amino Transferase 25 U/L (5-37); Bilirubin Direct 0.2 mg/dL (0.0-0.5); Bilirubin Total 0.5 mg/dL (0.0-1.0); Total Protein 6.9 g/dL (6.5-8.0)
[2025-01-22 10:44] LABS: Ferritin 172 ng/mL (20-250)
[2025-01-22 12:33] LABS: Alanine Aminotransferase 47 U/L (0-40)
== END 2025-01-22 09:05 | disposition home or self-care (01) ==
LOC: HO.BBR 09:04
PROVIDERS: PCP Internal Medicine Endocrinology, Diabetes & Metabolism; Visit Provider Internal Medicine Endocrinology, Diabetes & Metabolism
DX: E83.110 Hereditary hemochromatosis (principal)
CPT/HCPCS: 36415; 80076; 82728; 85025

== ENCOUNTER 2025-03-05 08:52 | Outpatient (REF) | payer OTHER, SELFPAY ==
[2025-03-05 09:17] LABS: MANUAL DIFF FLAG NO
--- OUTSIDE RECORDS SUMMARY | 2025-03-05 09:17 | XMS_ITS | Clinical Summary ---
Author Organization [facility] [address] [facility] Address [address] [place] [address] Phone Care Team Providers Care Broiler Chef Or Cook Name Role Phone Nesha Barraza MD Primary [...] Encounters Date Type Department Care Team Description 02/15/2025 7:09 AM EDT - 02/15/2025 11:59 PM EDT Hospital Encounter [facility] CT Scan [address] [place] [phone] Hydronephrosis with renal and ureteral calculous obstruction Discharge Disposition: Home or Self Care from Last 3 Months Surgical History Surgery Date Site/Laterality Comments LITHOTRIPSY TOTAL KNEE ARTHROPLASTY Bilateral US GROIN/INGUINAL HERNIA NECK SURGERY FUSION TESTICLE SURGERY APPENDECTOMY Medical History Medical History Date Comments Hypertension MIKE on CPAP Colon polyp Kidney stones Diabetes mellitus ([facility]/HCC V24, CMS/HCC V28) Testicular cancer ([facility] V24, [facility] V28) Psoriasis Hemochromatosis Social History Tobacco Use Types [...] 1 - PCV) 2018 COVID-19 Vaccine ( season) 2024 07/29/2023, 03/12/2022, 10/10/2021, Additional history exists Cholesterol Screening (Lipid Panel) 08/24/2024 Depression Screening 08/24/2024 HIV Screening 08/24/2024 Hepatitis C Screening 08/24/2024 Social Influencers of Health Screening 08/24/2024 Diabetes: Annual Urine Albumin-Creatinine Ratio (uACR) 10/19/2024 Diabetes: Blood Sugar Control Test (HGBA1C) 10/19/2024 Hypertension/CHF/CAD Annual BMP Blood Test 10/19/2024 Influenza Vaccine (Season Ended) 2025 07/29/2023, 08/05/2020 DTaP,Tdap,and Td Vaccines (2 - Td or [...] age to complete this topic Meningococcal B Vaccine Aged Out No l onger eligible based on patient's age to complete [...] Procedure Name Priority Date/Time Associated Diagnosis Comments CT ABDOMEN PELVIS WO CONTRAST Routine 02/15/2025 7:30 AM EDT Hydronephrosis with renal and ureteral calculous obstruction COLONOSCOPY Routine 10/19/2024 2:00 PM EST Personal history of other colon polyps from Last 3 Months or Most Recently Relevant to Health Maintenance Results * CT Abdomen Pelvis wo Contrast (02/15/2025 7:30 AM EDT) Anatomical Region Laterality Modality Body Computed Tomogra phy 02/15/2025 10:1 1 AM EDT Impressions 02/15/2025 11:30 AM EDT 1. ??Bilateral nonobstructing renal calculi, more numerous on the right than the left. ??The largest is a 5 mm interpolar calculus on the right. ??No hydronephrosis. ??No ureteral calculus. 2. ??Hepatic steatosis. -------- FINAL REPORT -------- Dictated By: Justin Cruz Dictated Date: 02/15/2025 10:11 ET Assigned Physician: Justin Cruz Reviewed and Electronically Signed By: Justin Cruz Signed Date: 02/15/2025 11:30 ET Workstation ID: [id number] Transcribed By: Self Edit Transcribed Date: 02/15/2025 10:11 ET Narrative 02/15/2025 11:30 AM EDT PROCEDURE: CT of the abdomen and pelvis without intravenous contrast. HISTORY: hydronephrosis with renal and ureteral obstruction. COMPARISON: None. TECHNIQUE: Noncontrast CT of the abdomen and pelvis with coronal and sagittal reformats. Dose length product: 930 mGy-cm. FINDINGS: Lung bases: Mild scarring in the inferior lingula. Cardiac: Mild coronary artery calcification. Liver: Limited evaluation without intravenous contrast. ??Moderate steatosis. ??No visible abnormality. Biliary: Normal gallbladder and biliary tree. Pancreas: Limited evaluation without intravenous contrast. ??No visible abnormality. Spleen: Limited evaluation without intravenous contrast. ??No visible abnormality. Adrenal glands: Normal. Kidneys: Limited evaluation without intravenous contrast. ??Small bilateral nonobstructing calculi, more numerous on the right than the left. ??The largest calculus is located in the interpolar region on the right and measures 5 mm. ??No hydronephrosis. ??Normal appearance of the ureters. Retroperitoneum: No mass or adenopathy. Abdominal vasculature: Mild atherosclerotic calcification. Bowel/mesentery: No obstruction or adenopathy. ??No mass or ascites. ??Mild distal colonic diverticulosis. ??Appendectomy. Abdominal wall: No mass or hernia. Pelvic nodes: No adenopathy. Pelvic organs: Postsurgical changes of the left inguinal canal suggestive of an orchiectomy. ??Moderately enlarged prostate gland with dystrophic calcifications on the left. Bones: Degenerative changes of the spine, hips, SI joints, and pubic symphysis. Procedure Note Justin Cruz MD - 02/15/2025 PROCEDURE: CT of the abdomen and pelvis without intravenous contrast. HISTORY: hydronephrosis with renal and ureteral obstruction. COMPARISON: None. TECHNIQUE: Noncontrast CT of the abdomen and pelvis with coronal andsagittal reformats. Dose length product: 930 mGy-cm. FINDINGS: Lung bases: Mild scarring in the inferior lingula. Cardiac: Mild coronary artery calcification. Liver: Limited evaluation without intravenous contrast. Moderatesteatosis. No visible abnormality. Biliary: Normal gallbladder and biliary tree. Pancreas: Limited evaluation without intravenous contrast. No visibleabnormality. Spleen: Limited evaluation without intravenous contrast. No visibleabnormality. Adrenal glands: Normal. Kidneys: Limited evaluation without intravenous contrast. Small bilateralnonobstructing calculi, more numerous on the right than the left. Thelargest calculus is located in the interpolar region on the right andmeasures 5 mm. No hydronephrosis. Normal appearance of the ureters. Retroperitoneum: No mass or adenopathy. Abdominal vasculature: Mild atherosclerotic calcification. Bowel/mesentery: No obstruction or adenopathy. No mass or ascites. Milddistal colonic diverticulosis. Appendectomy. Abdominal wall: No mass or hernia. Pelvic nodes: No adenopathy. Pelvic organs: Postsurgical changes of the left inguinal canal suggestiveof an orchiectomy. Moderately enlarged prostate gland with dystrophiccalcifications on the left. Bones: Degenerative changes of the spine, hips, SI joints, and pubicsymphysis. IMPRESSION: 1. Bilateral nonobstructing renal calculi, more numerous on the rightthan the left. The largest is a 5 mm interpolar calculus on the right.No hydronephrosis. No ureteral calculus. 2. Hepatic steatosis. -------- FINAL REPORT -------- Dictated By: Justin Cruz Dictated Date: 02/15/2025 10:11 ET Assigned Physician: Justin Cruz Reviewed and Electronically Signed By: Justin Cruz Signed Date: 02/15/2025 11:30 ET Workstation ID: [id number] Transcribed By: Self Edit Transcribed Date: 02/15/2025 10:11 ET us Markel SEGOVIA IM CT PROCEDURES Final Result * COLONOSCOPY Anesthesia - MAC; [facility] ENDOSCOPY (10/19/2024 2:00 PM EST) Anatomical Region [...] for surveillance. Narrative 10/19/2024 2:03 PM EST [facility] GI Patient Name: Iggy Jean Procedure Date: [...] Procedure Code(s): ? --- Professional --- ? 63880, Colonoscopy, flexible; with removal of ? tumor(s), polyp(s), or other lesion(s) by snare ? technique Diagnosis Code(s): ? --- Professional --- ? Z86.010, Personal history of colonic polyps ? D12.3, Benign neoplasm of transverse colon (hepatic ? flexure or splenic flexure) CPT copyright 2020 [employer]. All rights reserved. The codes documented in this report are preliminary and upon radiation oncology therapist review may be revised to meet current compliance requirements. Evgeny An MD 10/19/2024 2:03:37 PM This report has been signed electronically.Evgeny An MD Number of Addenda: 0 Note Initiated On: 10/19/2024 1:38 PM Scope In: Scope Out: ? Endoscopy Department at [facility] - [address] [place] [address], ? YOGI Gonzalez [id number] Procedure Note Evgeny An MD - 10/19/2024 [facility] GI Patient Name: Iggy Jean Procedure Date: [...] retroflexion views. Procedure Code(s): --- Professional --- 18112, Colonoscopy, flexible; with removal of tumor(s), polyp(s), or other lesion(s) by snare technique Diagnosis Code(s): --- Professional --- Z86.010, Personal history of colonic polyps D12.3, Benign neoplasm of transverse colon (hepatic flexure or splenic flexure) CPT copyright 2020 [employer]. All rights reserved. The codes documented in this report are preliminary and upon radiation oncology therapist reviewmay be revised to meet current compliance requirements. Evgeny An MD 10/19/2024 2:03:37 PM This report has been signed electronically.Evgeny An MD Number of Addenda: 0 Note Initiated On: 10/19/2024 1:38 PM Scope In: Scope Out: Endoscopy Department at [facility] - [address] [place] [phone] IMPRESSION: - One 6 mm polyp at the splenic flexure, removed with a cold snare. Resected and retrieved. - The examination was otherwise normal on directand retroflexion views. Recommendation: - Repeat colonoscopy in 5 years for surveillance. us Evgeny An MD GI~PROCEDURE ORDERABLES Fin al Result from Last 3 Months or Most Recently Relevant to Health Maintenance Insurance [facility] Care Teams Broiler Chef Or Cook Relationship Specialty Start Date End Date Nesha Barraza MD [address] [place] [address] [address] [place] [address] PCP - General Endocrinology 08/24/24
--- OUTSIDE RECORDS SUMMARY | 2025-03-05 09:17 | XMS_ITS | Continuity of Care Document ---
Author Organization [facility] [address] [place] [address] Phone [phone] Care Team Providers Care Cover Assembler Name Role Phone Nesha Barraza M.D. 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 02/29/2024 [id number] Tablets Take 1 Tablet By Mouth Daily as Directed 90taneena Barraza M.D. 06/17/2023 Humira Hjs42zv/0.4ML PNKT Inject every 2 weeks Nesha Barraza M.D. 12/15/2022 [id number] Tablets Take 1 Tablet By Mouth Daily as Directed 90nitza Barraza M.D. Metformin HCL [id number] Tablets ER 24HR Take 4 Tablets By [...] Arian 18 mg/dL 5-40 LDL Chol Calc ([facility]) 83 mg/dL 0-99 LDL Calc Comment: [...] 02/29/2024 Inhouse Hemoglobin A1c 6.9% Ferritin 06/15/2023 [facility] Ferritin 854 NG/ML High (16-294) Lipid Panel 06/15/2023 [facility] Cholesterol, Total 137 mg/dL (<200) Triglyceride 159 mg/dL High (<150) HDL Chol 35 mg/dL Low (>39) LDL Cholesterol , Calculated 70 mg/dL (0-130) Non HDL Cholesterol (Calc) 102 mg/dL (<160) Comprehensive Metabolic Panl 06/15/2023 [facility] Glucose 169 mg/dL High [...] 73M2 9 Complete Abc With Diff 06/15/2023 [facility] WBC 6.9 K/MM3 (4.0-11. [...] ) Lymph # 3.1 K/MM3 (0.8-3.1 ) Victoria# 0.5 K/MM3 (0.4-1.3 ) Eo # 0.3 K/MM3 (0.0-0.4 ) Baso # 0.1 K/MM3 (0.0-0.1 ) Abs. Imm Gran 0.0 K/MM3 Neut 42.3 % Low (44-76) Lymph 45.4 % High (15-43) Monocyte 7.4 % (4.5-10. 5) Eo 3.8 % (0-6) Baso 1.0 % (0-2) Imm Gran 0.1 % Urinary Microalbumin 06/15/2023 [facility] Micro-Albumin 107.0 mg/L High (<20) 10 Malb/Creat Ratio 73.0 MG/GM High (0-20) Urine Creat For Micro Albumin 146.1 mg/dL Ferritin 06/10/2023 [facility] Ferritin <pending> Glucose Fingerstick 06/10/2023 Inhouse Glucose Fingerstick 103 Hemoglobin A1c 06/10/2023 Inhouse Hemoglobin A1c 6.9% Comprehensive Metabolic Panl 12/15/2022 [facility] Glucose 111 mg/dL High [...] Inhouse Glucose Fingerstick 157 Urinary Microalbumin 12/15/2022 [facility] Micro-Albumin 63.5 mg/L High (<20) 12 Malb/Creat Ratio 49.4 MG/GM High (0-20) Urine Creat For Micro Albumin 128.6 mg/dL Ferritin 12/15/2022 [facility] Ferritin 772 NG/ML High (16-294) PSA Screen 12/15/2022 [facility] PSA Screen 1.5 NG/ML (0-4) 13 Complete Abc With Diff 12/15/2022 [facility] WBC 9.3 K/MM3 (4.0-11. [...] Lymph # 4.7 K/MM3 High (0.8-3.1 ) Victoria# 0.6 K/MM3 (0.4-1.3 ) Eo # 0.4 [...] Yolette ECLIA methodol ogy. According to the [employer], Serum PSA should decrease and [...] the following specimen for additional lab results. [phone] D 9 Creatinine based est imated glomerular [...] INTERCHANGEABLY. Procedures Date Code Description Status 07/02/2024 68895 Collection Of Venous Blood B y Venipuncture Completed 02/29/2024 80226 Collection Of Venous Blood B y Venipuncture Completed 12/15/2022 24296 Collection Of Venous Blood B y Venipuncture [...] Reason for Referral Status Appt [facility] Man colonoscopy Closed [address] [place] [address] [phone] Ismael Jordan Closed [address] [place] [address] [phone] [facility] Closed [address] [facility] [address] [place] [address] [phone] Julio Mota MD Psoriasis Closed [facility] [address] [place] [address], [place] [address] [phone] [facility] faxed referral Closed [address] [place] [address], [address] [address] [phone] Ryan Oconnell Closed [address] [place] [address] [phone] [facility] Closed [address] [place] [address], [address] [address] [phone]
[2025-03-05 09:34] LABS: Basophils Absolute Auto 0.1 X10*3/uL (0.0-0.2); Basophils Percent Auto 0.8 % (0-2); Eosinophils Absolute Auto 0.2 X10*3/uL (0.0-0.4); Eosinophils Percent Auto 2.8 % (0-4); Hemoglobin 15.1 g/dl (14.0-18.0); Imm Gran Abs Auto 0.02 X10*3/uL (0.00-0.03); Imm Gran Pct Auto 0.3 % (0.0-0.4); Lymphocytes Absolute Auto 2.4 X10*3/uL (1.2-4.9); Lymphocytes Percent Auto 38.1 % (20-40); Mean Corpuscular HGB Conc 34.3 g/dl (31.0-36.0); Mean Corpuscular Hemoglobin 29.3 pg (27.0-33.0); Mean Corpuscular Volume 85.4 fL (80.0-98.0); Mean Platelet Volume 10.9 fL (9.4-12.4); Monocytes Absolute Auto 0.5 X10*3/uL (0.1-1.2); Monocytes Percent Auto 8.4 % (2-11); Neutrophils Absolute Auto 3.2 x10*3/uL (2.0-8.3); Neutrophils Percent Auto 49.6 % (45-73); Platelet Count 160 X10*3/uL (160-400); Red Blood Count 5.15 X10*6/uL (4.60-5.80); Red Cell Distribution Width 12.2 % (11.0-16.0); White Blood Count 6.4 X10*3/uL (4.8-10.8)
[2025-03-05 11:20] LABS: Ferritin 132 ng/mL (20-250)
[2025-03-05 11:29] LABS: Albumin Level 4.5 g/dL (3.5-5.0); Aspartate Amino Transferase 26 U/L (5-37); Bilirubin Direct 0.1 mg/dL (0.0-0.5); Bilirubin Total 0.4 mg/dL (0.0-1.0); Total Protein 6.9 g/dL (6.5-8.0)
[2025-03-05 12:53] LABS: Alkaline Phosphatase 78 U/L (39-117)
[2025-03-05 13:18] LABS: Alanine Aminotransferase 39 U/L (0-40)
== END 2025-03-05 08:53 | disposition home or self-care (01) ==
LOC: HO.BBR 08:52
PROVIDERS: PCP Internal Medicine Endocrinology, Diabetes & Metabolism; Visit Provider Internal Medicine Endocrinology, Diabetes & Metabolism
DX: E83.119 Hemochromatosis, unspecified (principal)
CPT/HCPCS: 36415; 80076; 82728; 85025

== ENCOUNTER 2025-04-23 14:01 | Outpatient (REF) | payer OTHER, SELFPAY ==
[2025-04-23 14:35] LABS: MANUAL DIFF FLAG NO
[2025-04-23 14:38] LABS: Hematocrit 42.9 % (42.0-52.0); Hemoglobin 15.0 g/dl (14.0-18.0); Imm Gran Abs Auto 0.03 X10*3/uL (0.00-0.03); Imm Gran Pct Auto 0.4 % (0.0-0.4); Lymphocytes Absolute Auto 3.4 X10*3/uL (1.2-4.9); Mean Corpuscular HGB Conc 35.0 g/dl (31.0-36.0); Mean Corpuscular Hemoglobin 29.3 pg (27.0-33.0); Mean Corpuscular Volume 83.8 fL (80.0-98.0); NRBC Abs Auto 0.000 X10*3/uL (0.0-0.012); NRBC Pct Auto 0.0 /100WBC (0.0-0.2); Platelet Count 202 X10*3/uL (160-400); Red Blood Count 5.12 X10*6/uL (4.60-5.80); White Blood Count 7.2 X10*3/uL (4.8-10.8)
--- OUTSIDE RECORDS SUMMARY | 2025-04-23 15:15 | XMS_ITS | Clinical Summary ---
Author Organization [facility] [address] [facility] Address [address] [place] [address] Phone Care Team Providers Care Livestock Yard Supervisor Name Role Phone Nesha Barraza MD Primary [...] - 02/15/2025 11:59 PM EDT Hospital Encounter [facility] CT Scan [address] [place] [phone] Hydronephrosis with renal and ureteral calculous obstruction Discharge Disposition: Home or Self Care from Last 3 Months Surgical History Surgery Date Site/Laterality Comments LITHOTRIPSY TOTAL KNEE ARTHROPLASTY Bilateral US GROIN/INGUINAL HERNIA NECK SURGERY FUSION TESTICLE SURGERY APPENDECTOMY Medical History Medical History Date Comments Hypertension MIKE on CPAP Colon polyp Kidney stones Diabetes mellitus ([facility]/HCC V24, [facility]/HCC V28) Testicular cancer (CMS/HCC V24, [facility]/HCC V28) Psoriasis Hemochromatosis Social History Tobacco Use [...] 81 10/19/2024 2:22 PM EST Temperature 36.3 C (97.4 F) 10/19/2024 2:01 PM EST Respiratory Rate 12 10/19/2024 2:22 PM EST [...] of 1 - PCV) 2018 COVID-19 Vaccine (2023- season) 2024 07/29/2023, 03/12/2022, 10/10/2021, Additional history exists Cholesterol Screening (Lipid Panel) 08/24/2024 Depression Screening 08/24/2024 HIV Screening 08/24/2024 Hepatitis C Screening 08/24/2024 Social Influencers of Health Screening 08/24/2024 Diabetes: Annual Urine Albumin-Creatinine Ratio (uACR) 10/19/2024 Diabetes: Blood Sugar Control Test (HGBA1C) 10/19/2024 Hypertension/CHF/CAD Annual BMP Blood Test 10/19/2024 Influenza Vaccine (#1) 2025 07/29/2023, 2019 DTaP,Tdap,and Td Vaccines (2 - Td or [...] EDT Impressions 02/15/2025 11:30 AM EDT 1. Bilateral nonobstructing renal calculi, more numerous on the right than the left. The largest is a 5 mm interpolar calculus on the right. No hydronephrosis. No ureteral calculus. 2. Hepatic steatosis. -------- FINAL REPORT -------- Dictated By: Justin Cruz Dictated Date: 02/15/2025 10:11 ET Assigned Physician: Justin Cruz Reviewed and Electronically Signed By: Justin Cruz Signed Date: 02/15/2025 11:30 ET Workstation ID: [id number] Transcribed By: Self Edit Transcribed Date: 02/15/2025 [...] calcification. Liver: Limited evaluation without intravenous contrast. Moderate steatosis. No visible abnormality. Biliary: Normal gallbladder and biliary tree. Pancreas: Limited evaluation without intravenous contrast. No visible abnormality. Spleen: Limited evaluation without intravenous contrast. No visible abnormality. Adrenal glands: Normal. Kidneys: Limited evaluation without intravenous contrast. Small bilateral nonobstructing calculi, more numerous on the right than the left. The largest calculus is located in the interpolar region on the right and measures 5 mm. No hydronephrosis. Normal appearance of the ureters. Retroperitoneum: No mass or adenopathy. Abdominal vasculature: Mild atherosclerotic calcification. Bowel/mesentery: No obstruction or adenopathy. No mass or ascites. Mild distal colonic diverticulosis. Appendectomy. Abdominal wall: No mass or hernia. Pelvic nodes: No adenopathy. Pelvic organs: Postsurgical changes of the left inguinal canal suggestive of an orchiectomy. Moderately enlarged prostate gland with dystrophic calcifications on [...] Signed Date: 02/15/2025 11:30 ET Workstation ID: [id number] Transcribed By: Self Edit Transcribed Date: 02/15/2025 10:11 ET Markel Neil Pacheco [place] IM CT PROCEDURES Final Result * COLONOSCOPY Anesthesia - MAC; [facility] ENDOSCOPY (10/19/2024 2:00 PM EST) Anatomical Region Laterality Modality Other 10/19/2024 1:38 PM EST Impressions 10/19/2024 2:03 PM EST - One 6 mm polyp at the splenic flexure, removed with a cold snare. Resected and retrieved. - The examination was otherwise normal on direct and retroflexion views. Recommendation: - Repeat colonoscopy in 5 years for surveillance. Narrative 10/19/2024 2:03 PM EST [facility] GI Patient Name: Iggy Jean Procedure Date: 10/19/2024 1:38 PM Date of : 1970 Age: 53 Room: ROOM 14 Gender: Male Note Status: Finalized Attending MD: Evgeny An MD, Procedure Date No Time: 10/19/2024 Procedure: Colonoscopy Indications: High risk colon cancer surveillance: Personal history of colonic polyps Providers: Evgeny An MD Referring MD: Evgeny An MD Medicines: Propofol per Anesthesia Complications: No immediate complications. Estimated Blood Loss: Estimated blood loss: none. Procedure: Pre-Anesthesia Assessment: - ASA Grade Assessment: II - A patient with mild systemic disease. After I obtained informed consent, the scope was passed under direct vision. Throughout the procedure, the patient's blood pressure, pulse, and oxygen [...] The polyp was removed with a cold snare. Resection and retrieval were complete. The exam was otherwise without abnormality on direct and retroflexion views. Procedure Code(s): --- Professional --- 73629, Colonoscopy, flexible; with removal of tumor(s), polyp(s), or other lesion(s) by snare technique Diagnosis Code(s): --- Professional --- Z86.010, Personal history of colonic polyps D12.3, Benign neoplasm of transverse colon (hepatic flexure or splenic flexure) CPT copyright 2020 [employer]. All rights reserved. The codes documented in this report are preliminary and upon medical record coder review may be revised to meet current compliance requirements. Evgeny An MD 10/19/2024 2:03:37 PM This report has been signed electronically.Evgeny An MD Number of Addenda: 0 Note Initiated On: 10/19/2024 1:38 PM Scope In: Scope Out: Endoscopy Department at [facility] - [address] [place] [phone] Procedure Note Evgeny An MD - 10/19/2024 [facility] GI Patient Name: Iggy Jean Procedure [...] retroflexion views. Procedure Code(s): --- Professional --- 36356, Colonoscopy, flexible; with removal of tumor(s), polyp(s), or other lesion(s) by snare technique Diagnosis Code(s): --- Professional --- Z86.010, Personal history of colonic polyps D12.3, Benign neoplasm of transverse colon (hepatic flexure or splenic flexure) CPT copyright 2020 [employer]. All rights reserved. The codes documented in this report are preliminary and upon medical record coder reviewmay be revised to meet current compliance requirements. Evgeny An MD 10/19/2024 2:03:37 PM This report has been signed electronically.Evgeny An MD Number of Addenda: 0 Note Initiated On: 10/19/2024 1:38 PM Scope In: Scope Out: Endoscopy Department at [facility] - [address] [place] [phone] IMPRESSION: - One 6 mm polyp at the splenic flexure, removed with a cold snare. Resected and retrieved. - The examination was otherwise normal on directand retroflexion views. Recommendation: - Repeat colonoscopy in 5 years for surveillance. Evgeny An MD GI~PROCEDURE ORDERABLES Fin al Result from Last 3 Months or Most Recently Relevant to Health Maintenance Insurance Care Teams Livestock Yard Supervisor Relationship Specialty Start Date End Date Nesha Barraza MD [address] [place] [address] [address] [place] [address] PCP - General Endocrinology 08/24/24
[2025-04-23 15:43] LABS: Alanine Aminotransferase 39 U/L (0-40); Albumin Level 4.8 g/dL (3.5-5.0); Alkaline Phosphatase 57 U/L (39-117); Aspartate Amino Transferase 27 U/L (5-37); Total Protein 7.1 g/dL (6.5-8.0)
[2025-04-23 15:57] LABS: Ferritin 162 ng/mL (20-250)
== END 2025-04-23 14:02 | disposition home or self-care (01) ==
LOC: HO.BBR 14:01
PROVIDERS: PCP Internal Medicine Endocrinology, Diabetes & Metabolism; Visit Provider Internal Medicine Endocrinology, Diabetes & Metabolism
DX: E83.110 Hereditary hemochromatosis (principal)
CPT/HCPCS: 36415; 80076; 82728; 85025

== ENCOUNTER 2025-06-11 08:12 | Outpatient (REF) | payer OTHER, SELFPAY ==
[2025-06-11 08:28] LABS: MANUAL DIFF FLAG NO
[2025-06-11 08:32] LABS: Hematocrit 43.3 % (42.0-52.0); Hemoglobin 15.2 g/dl (14.0-18.0); Imm Gran Abs Auto 0.01 X10*3/uL (0.00-0.03); Imm Gran Pct Auto 0.2 % (0.0-0.4); Lymphocytes Absolute Auto 2.6 X10*3/uL (1.2-4.9); Mean Corpuscular HGB Conc 35.1 g/dl (31.0-36.0); Mean Corpuscular Hemoglobin 30.0 pg (27.0-33.0); Mean Corpuscular Volume 85.6 fL (80.0-98.0); NRBC Abs Auto 0.000 X10*3/uL (0.0-0.012); NRBC Pct Auto 0.0 /100WBC (0.0-0.2); Platelet Count 135 X10*3/uL (160-400); Red Blood Count 5.06 X10*6/uL (4.60-5.80); White Blood Count 5.9 X10*3/uL (4.8-10.8)
--- OUTSIDE RECORDS SUMMARY | 2025-06-11 08:46 | XMS_ITS | Clinical Summary ---
Author Organization [facility] [address] [facility] Address [address] [place] [address] Phone Care Team Providers Care Metal Painter Name Role Phone Nesha Barraza MD Primary [...] skin every 14 (fourteen) days. 09/11/2024 Active Surgical History Surgery Date Site/Laterality Comments LITHOTRIPSY TOTAL KNEE ARTHROPLASTY Bilateral US GROIN/INGUINAL HERNIA NECK SURGERY FUSION TESTICLE SURGERY APPENDECTOMY Medical History Medical History Date Comments Hypertension MIKE on CPAP Colon polyp Kidney stones Diabetes mellitus (CMS/HCC V24, CMS/HCC V28) Testicular cancer (CMS/HCC V24, CMS/HCC V28) Psoriasis Hemochromatosis Social History Tobacco Use [...] history exists Cholesterol Screening (Lipid Panel) 08/24/2024 HIV Screening 08/24/2024 Hepatitis C Screening 08/24/2024 Social Influencers of Health Screening 08/24/2024 Diabetes: Annual Urine Albumin-Creatinine Ratio (uACR) 10/19/2024 Diabetes: Blood Sugar Control Test (HGBA1C) 10/19/2024 Hypertension/CHF/CAD Annual BMP Blood Test 10/19/2024 Depression Screening 10/24/2024 Influenza Vaccine (#1) 2025 07/29/2023, 2019 DTaP,Tdap,and [...] Recently Relevant to Health Maintenance Results * [place]ONOSCOPY [place] [facility] [place] [facility]COPY (10/19/2024 2:00 PM EST) Anatomical Region Laterality Modality Other 10/19/2024 1:38 PM EST Impressions 10/19/2024 2:03 PM EST - One 6 mm polyp at the splenic flexure, removed with a cold snare. Resected and retrieved. - The examination was otherwise normal on direct and retroflexion views. Recommendation: - Repeat colonoscopy in 5 years for surveillance. Narrative 10/19/2024 2:03 PM EST [facility] GI Patient Name: Iggy Jean Procedure [...] retroflexion views. Procedure Code(s): --- Professional --- 55353, Colonoscopy, flexible; with removal of tumor(s), polyp(s), or other lesion(s) by snare technique Diagnosis Code(s): --- Professional --- Z86.010, Personal history of colonic polyps D12.3, Benign neoplasm of transverse colon (hepatic flexure or splenic flexure) CPT copyright 2020 [employer]. All rights reserved. The codes documented in this report are preliminary and upon medical biller coder review may be revised to meet current compliance requirements. Evgeny An MD 10/19/2024 2:03:37 PM This report has been signed electronically.Evgeny An MD Number of Addenda: 0 Note Initiated On: 10/19/2024 1:38 PM Scope In: Scope Out: Endoscopy Department at [facility] - [address] [place] [phone] Procedure Note Evgeny An MD - 10/19/2024 [facility] GI Patient Name: Iggy Jean Procedure [...] retroflexion views. Procedure Code(s): --- Professional --- 36517, Colonoscopy, flexible; with removal of tumor(s), polyp(s), or other lesion(s) by snare technique Diagnosis Code(s): --- Professional --- Z86.010, Personal history of colonic polyps D12.3, Benign neoplasm of transverse colon (hepatic flexure or splenic flexure) CPT copyright 2020 [employer]. All rights reserved. The codes documented in this report are preliminary and upon medical biller coder reviewmay be revised to meet current compliance requirements. Evgeny An MD 10/19/2024 2:03:37 PM This report has been signed electronically.Evgeny An MD Number of Addenda: 0 Note Initiated On: 10/19/2024 1:38 PM Scope In: Scope Out: Endoscopy Department at [facility] - [address] [place] [phone] IMPRESSION: - One 6 mm polyp at the splenic flexure, removed with a cold snare. Resected and retrieved. - The examination was otherwise normal on directand retroflexion views. Recommendation: - Repeat colonoscopy in 5 years for surveillance. us Evgeny An MD GI~PROCEDURE ORDERABLES Fin al Result from Last 3 Months or Most Recently Relevant to Health Maintenance [place] [address] [address] [place] [address] Care Teams Metal Painter Relationship Specialty Start Date End Date Nesha Barraza MD PCP - General Endocrinology 08/24/24
[2025-06-11 09:06] LABS: Alanine Aminotransferase 33 U/L (0-40); Albumin Level 4.7 g/dL (3.5-5.0); Alkaline Phosphatase 47 U/L (39-117); Aspartate Amino Transferase 23 U/L (5-37); Total Protein 6.8 g/dL (6.5-8.0)
[2025-06-11 09:19] LABS: Ferritin 117 ng/mL (20-250)
== END 2025-06-11 08:13 | disposition home or self-care (01) ==
LOC: HO.BBR 08:12
PROVIDERS: PCP Internal Medicine Endocrinology, Diabetes & Metabolism; Visit Provider Internal Medicine Endocrinology, Diabetes & Metabolism
DX: E83.119 Hemochromatosis, unspecified (principal)
CPT/HCPCS: 36415; 80076; 82728; 85025

== ENCOUNTER 2025-07-23 07:59 | Outpatient (REF) | payer OTHER, SELFPAY ==
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
[2025-07-23 08:12] LABS: MANUAL DIFF FLAG NO
[2025-07-23 08:13] LABS: Hematocrit 42.2 % (42.0-52.0); Hemoglobin 14.9 g/dl (14.0-18.0); Imm Gran Abs Auto 0.02 X10*3/uL (0.00-0.03); Imm Gran Pct Auto 0.3 % (0.0-0.4); Lymphocytes Absolute Auto 2.6 X10*3/uL (1.2-4.9); Mean Corpuscular HGB Conc 35.3 g/dl (31.0-36.0); Mean Corpuscular Hemoglobin 29.6 pg (27.0-33.0); Mean Corpuscular Volume 83.9 fL (80.0-98.0); NRBC Abs Auto 0.000 X10*3/uL (0.0-0.012); NRBC Pct Auto 0.0 /100WBC (0.0-0.2); Platelet Count 165 X10*3/uL (160-400); Red Blood Count 5.03 X10*6/uL (4.60-5.80); White Blood Count 5.8 X10*3/uL (4.8-10.8)
[2025-07-23 08:56] LABS: Alanine Aminotransferase 34 U/L (0-40); Albumin Level 4.7 g/dL (3.5-5.0); Alkaline Phosphatase 58 U/L (39-117); Aspartate Amino Transferase 23 U/L (5-37); Total Protein 6.7 g/dL (6.5-8.0)
[2025-07-23 09:06] LABS: Ferritin 90 ng/mL (20-250)
== END 2025-07-23 08:00 | disposition home or self-care (01) ==
LOC: HO.BBR 07:59
PROVIDERS: PCP Internal Medicine Endocrinology, Diabetes & Metabolism; Visit Provider Internal Medicine Endocrinology, Diabetes & Metabolism
DX: E83.110 Hereditary hemochromatosis (principal)
CPT/HCPCS: 36415; 80076; 82728; 85025

== ENCOUNTER 2025-09-16 14:45 | Outpatient (REF) | payer OTHER, SELFPAY ==
[2025-09-16 14:56] LABS: MANUAL DIFF FLAG NO
[2025-09-16 14:57] LABS: Hematocrit 45.6 % (42.0-52.0); Hemoglobin 15.6 g/dl (14.0-18.0); Imm Gran Abs Auto 0.05 X10*3/uL (0.00-0.03); Imm Gran Pct Auto 0.6 % (0.0-0.4); Lymphocytes Absolute Auto 3.2 X10*3/uL (1.2-4.9); Mean Corpuscular HGB Conc 34.2 g/dl (31.0-36.0); Mean Corpuscular Hemoglobin 29.2 pg (27.0-33.0); Mean Corpuscular Volume 85.2 fL (80.0-98.0); NRBC Abs Auto 0.000 X10*3/uL (0.0-0.012); NRBC Pct Auto 0.0 /100WBC (0.0-0.2); Platelet Count 236 X10*3/uL (160-400); Red Blood Count 5.35 X10*6/uL (4.60-5.80); White Blood Count 8.9 X10*3/uL (4.8-10.8)
[2025-09-16 16:37] LABS: Ferritin 118 ng/mL (20-250)
[2025-09-16 16:51] LABS: Alanine Aminotransferase 32 U/L (0-40); Albumin Level 4.9 g/dL (3.5-5.0); Alkaline Phosphatase 65 U/L (39-117); Aspartate Amino Transferase 31 U/L (5-37); Total Protein 7.4 g/dL (6.5-8.0)
--- OUTSIDE RECORDS SUMMARY | 2025-09-16 19:35 | XMS_ITS ---
Author Name [facility] Organization Unknown Problems Problem Status Onset Date Problem Type Date of Resoluti on Source Elevated coronary artery calcium score active EncounterDiagnosisAct _ [facility]
--- OUTSIDE RECORDS SUMMARY | 2025-09-16 19:35 | XMS_ITS | Encounter Summary ---
Author Organization [facility] Address [address] [place] [address] Care Team Providers Care Attacher Name Role Phone Nesha Barraza MD Primary Care Provid er Reason for Referral * Consultation (Routine) - Pending Review Specialty Diagnoses / Procedures Referred By Contac t Referred To Contact Cardiology Diagnoses Elevated coronary artery calcium score Nesha Barraza MD [address] [place] [address] Phone: tel: fax: [facility] [address] [place] [address] Phone: tel: fax: Referral ID Status Reason Start Date Expiration Date Visits Requested Visits Authorized [id number] Pending Review Specialty Services Required 5 09/11/2026 1 1 Reason for Visit * Reason Onset Date Comments Referral 09/11/2025 Received routine paper referral - Nov. ab Encounter Details Date Type Department Care Team (Late st Contact Info) Description 09/11/2025 [facility]phone [facility] [address] [phone] Nesha Barraza MD [address] [place] [address] Social History Tobacco Use Types Packs/Day Years Used Date Smoking Tobacco: Never Smokeless Tobacco: Never Alcohol Use Standard Drinks/Week Comments Not Currently [...] Orientation Straight 09/14/2024 2: 24 PM EST documented as of this encounter Plan of Treatment Scheduled Referrals Name Type Priority Associated Diagnoses Order Schedule Ambulatory referral to Cardiology Outpatient Referral Routine Elevated coronary artery calcium score 1 Occurrences starting 09/11/2025 until 09/11/2026 documented as of this encounter Visit Diagnoses Diagnosis Elevated coronary artery calcium score- Primary documented in this encounter Care Teams Attacher Relationship Specialty Start Date End Date Nesha Barraza MD PCP - General Endocrinology 08/24/24 documented as of this encounter
--- OUTSIDE RECORDS SUMMARY | 2025-09-16 19:35 | XMS_ITS | Clinical Summary ---
Author Organization [facility] 299 [facility] Address [address] [place] [address] Phone Care Team Providers Care Tree Driller Name Role Phone Nesha Barraza MD Primary [...] Encounters Date Type Department Care Team Description 09/11/2025 Telephone [facility] [address] [place] [address] [place] [address] Nesha Barraza MD from Last 3 Months Surgical History Surgery [...] 03/12/2022 Colorectal Cancer Screening: Colonoscopy 10/19/2034 10/19/2024 RSV Immunization Adult Patients (1 - 1-dose 75+ series) 12/27/2043 Zoster Vaccines Completed 11/12/2020, 08/05/2020 HIB Vaccines [...] Health Maintenance Results * COLONOSCOPY Anesthesia - [facility]; [facility] ENDOSCOPY (10/19/2024 2:00 PM EST) Anatomical [...] 2:[address] [facility] Patient Name: Iggy Jean Procedure Date: [...] retroflexion views. Procedure Code(s): --- Professional --- 31857, Colonoscopy, flexible; with removal of tumor(s), polyp(s), or other lesion(s) by snare technique Diagnosis Code(s): --- Professional --- Z86.010, Personal history of colonic polyps D12.3, Benign neoplasm of transverse colon (hepatic flexure or splenic flexure) CPT copyright 2020 [employer]. All rights reserved. The codes documented in this report are preliminary and upon junior assistant manager review may be revised to meet current compliance requirements. Evgeny An MD 10/19/2024 2:03:37 PM This report has been signed electronically.Evgeny An MD Number of Addenda: 0 Note Initiated On: 10/19/2024 1:38 PM Scope In: Scope Out: Endoscopy Department at [facility] - [address] [place] [phone] Procedure Note Evgeny An MD - 10/19/2024 [facility] GI Patient Name: Iggy Jean Procedure Date: [...] retroflexion views. Procedure Code(s): --- Professional --- 61477, Colonoscopy, flexible; with removal of tumor(s), polyp(s), or other lesion(s) by snare technique Diagnosis Code(s): --- Professional --- Z86.010, Personal history of colonic polyps D12.3, Benign neoplasm of transverse colon (hepatic flexure or splenic flexure) CPT copyright 2020 [employer]. All rights reserved. The codes documented in this report are preliminary and upon junior assistant manager reviewmay be revised to meet current compliance requirements. Evgeny An MD 10/19/2024 2:03:37 PM This report has been signed electronically.Evgeny An MD Number of Addenda: 0 Note Initiated On: 10/19/2024 1:38 PM Scope In: Scope Out: Endoscopy Department at [facility] - [address] [place] [phone] IMPRESSION: - One 6 mm polyp at the splenic flexure, removed with a cold snare. Resected and retrieved. - The examination was otherwise normal on directand retroflexion views. Recommendation: - Repeat colonoscopy in 5 years for surveillance. us Evgeny An MD GI~PROCEDURE ORDERABLES Fin al Result from Last 3 Months or Most Recently Relevant to Health Maintenance Insurance [facility] Care Teams Tree Driller Relationship Specialty Start Date End Date Nesha Barraza MD PCP - General Endocrinology 08/24/24
== END 2025-09-16 14:46 | disposition home or self-care (01) ==
LOC: HO.BBR 14:45
PROVIDERS: Visit Provider Internal Medicine Endocrinology, Diabetes & Metabolism
DX: E83.110 Hereditary hemochromatosis (principal)
CPT/HCPCS: 36415; 80076; 82728; 85025